=== PATIENT | female | born 1995 | race Caucasian/White ===

== ENCOUNTER 2016-10-04 06:20 | Observation (INO) | payer OTHER ==
[~2016-10-04] VITALS: Ht 152.4 cm; Wt 68.9 kg
[2016-10-04 06:30] VITALS: BP 107/57
[2016-10-04] MEDS ORDERED: PREN1TAB80 PO (06:37)
== END 2016-10-04 08:40 | disposition home or self-care (01) ==
LOC: 4S 06:20
PROVIDERS: ADMIT Obstetrics & Gynecology; ATTEND Obstetrics & Gynecology
DX: O46.93 Antepartum hemorrhage, unspecified, third trimester (principal); O26.893 Other specified pregnancy related conditions, third trimester; R10.9 Unspecified abdominal pain; O48.0 Post-term pregnancy; Z3A.40 40 weeks gestation of pregnancy
CPT/HCPCS: 36415; 59025; 89060; G0378

== ENCOUNTER 2016-10-04 15:55 | Inpatient (IN) | payer OTHER ==
[~2016-10-04] VITALS: Ht 154 cm; Wt 68.9 kg
[~2016-10-04 15:55] MED LIST: PREN1TAB80 PO
[2016-10-04] MEDS ORDERED: RINGERS SOLUTION,LACTATED 1,000 ML IV PRN (16:38)
[2016-10-04] MEDS ORDERED: METOCLOPRAMIDE HCL 5 MG/ML 2 ML VIAL IVP PRN (16:45)
[2016-10-04] MEDS ORDERED: METHYLERGONOVINE MALEATE 0.2 MG/ML VIAL IM PRN (16:45)
[2016-10-04] MEDS ORDERED: LIDOCAINE HCL/PF 1% 30 ML VIAL INJ PRN (16:45)
[2016-10-04] MEDS ORDERED: CITRIC ACID/SODIUM CITRATE 30 ML SOLUTION UDCUP PO PRN (16:45)
[2016-10-04 17:18] LABS: EOSINOPHILS % (AUTO) 0.3 % (1.0-6.0); HEMATOCRIT 35.3 % (36-46); HEMOGLOBIN 12.4 g/dL (12.0-16.0); LYMPHOCYTES # (AUTO) 1.4 K/uL (1.0-4.8); LYMPHOCYTES % (AUTO) 10.6 % (22.0-44.0); MEAN CORPUSCULAR HEMOGLOBIN 34.3 pg (26.0-34.0); MEAN CORPUSCULAR HGB CONC 35.2 G/dL (31.0-37.0); MEAN CORPUSCULAR VOLUME 97 fL (80-100); MONOCYTES # (AUTO) 0.6 K/uL (0.1-1.0); MONOCYTES % (AUTO) 4.3 % (2.0-9.0); NEUTROPHILS # (AUTO) 11.4 K/uL (1.8-7.7); NEUTROPHILS % (AUTO) 84.8 % (40.0-70.0); RED BLOOD CELL COUNT(AUTO) 3.63 MIL/uL (4.00-5.20); RED CELL DISTRIBUTION WIDTH 13.2 % (11.5-14.5); WHITE BLOOD COUNT (AUTO) 13.4 K/uL (4.5-11.0)
[2016-10-04] MEDS: RINGERS SOLUTION,LACTATED 1,000 ML IV SCH ×2 (17:53→19:58)
[2016-10-04] MEDS ORDERED: OXYTOCIN 30 UNITS/LACT RINGERS 500 ML IV PRN (18:57)
[2016-10-04 19:24] VITALS: BP 113/65
[2016-10-04] MEDS ORDERED: OXYGEN THERAPY IH SCH (20:00)
[2016-10-04] MEDS ORDERED: OXYTOCIN 30 UNITS/LACT RINGERS 500 ML IV ONE (20:15)
[2016-10-04] MEDS: FentaNYL CITRATE-PF 100 MCG/2 ML VIAL IVP PRN ×2 (20:24→20:25)
[2016-10-04] MEDS ORDERED: FentaNYL/BUPIV 0.125%/NS/PF 200 ML ED ONE (20:56)
[2016-10-05] MEDS ORDERED: RINGERS SOLUTION,LACTATED 1,000 ML IV ONE (01:00)
[2016-10-05] MEDS: RINGERS SOLUTION,LACTATED 1,000 ML IV SCH ×3 (03:05→23:50)
[2016-10-05] MEDS ORDERED: ACETAMINOPHEN 1000 MG/ISO-OSM 100 ML IV ONE ×2 (08:45→08:50)
[2016-10-05] MEDS ORDERED: AMPICILLIN SODIUM 2 GM/NS 100 ML IV ONE (08:45)
[2016-10-05] MEDS ORDERED: EPHEDrine SULFATE 50 MG/ML VIAL IM ONE (12:00)
[2016-10-05] MEDS ORDERED: OXYTOCIN 10 UNITS/ML VIAL IM ONE (12:00)
[2016-10-05] MEDS ORDERED: ONDANSETRON HCL 4 MG/2 ML VIAL IVP ONE (12:00)
[2016-10-05] MEDS ORDERED: GLYCOPYRROLATE 0.2 MG/ML VIAL IM ONE (12:00)
[2016-10-05] MEDS ORDERED: GENTAMICIN 100 MG/NACL ISO-OSM 50 ML IV ONE (13:30)
[2016-10-05] MEDS ORDERED: LIDOCAINE HCL 2%/EPI 1:200,000/PF 10 ML VIAL ONE (15:04)
[2016-10-05] MEDS ORDERED: METHYLERGONOVINE MALEATE 0.2 MG/ML VIAL ONE (16:14)
[2016-10-05] MEDS ORDERED: NALBUPHINE HCL 10 MG/ML VIAL IVP PRN ×2 (16:30)
[2016-10-05] MEDS ORDERED: DiphenhydrAMINE HCL 50 MG/ML VIAL IVP PRN (16:30)
[2016-10-05] MEDS ORDERED: ONDANSETRON HCL 4 MG/2 ML VIAL IVP PRN (16:30)
[2016-10-05] MEDS ORDERED: NALOXONE HCL 0.4 MG/ML VIAL IVP PRN (16:30)
[2016-10-05] MEDS ORDERED: MEPERIDINE-PF 25 MG/ML SYRINGE IVP PRN (17:15)
[2016-10-05] MEDS ORDERED: OxyCODONE HCL/ACETAMINOPHEN 5-325 MG TABLET PO PRN ×2 (17:30)
[2016-10-05] MEDS ORDERED: LANOLIN 7 GM OINTMENT TP PRN (17:30)
[2016-10-05] MEDS ORDERED: GLYCERIN/WITCH HAZEL LEAF 40 PADS JAR TP PRN (17:30)
[2016-10-05] MEDS ORDERED: NALBUPHINE HCL 10 MG/ML VIAL ONE (17:56)
[2016-10-05] MEDS: NALBUPHINE HCL 10 MG/ML VIAL IVP SCH (18:39)
[2016-10-05] MEDS ORDERED: OXYGEN THERAPY IH SCH ×3 (20:00)
[2016-10-05] MEDS: MAGNESIUM HYDROXIDE SUSPENSION 30 ML UDCUP PO SCH (21:18)
[2016-10-06] MEDS: NALBUPHINE HCL 10 MG/ML VIAL IVP SCH ×3 (00:23→12:45)
[2016-10-06 06:57] LABS: BASOPHILS % (AUTO) 0.4 % (0.0-2.0); EOSINOPHILS % (AUTO) 0 % (1.0-6.0); HEMATOCRIT 28.9 % (36-46); HEMOGLOBIN 10.2 g/dL (12.0-16.0); LYMPHOCYTES # (AUTO) 1.4 K/uL (1.0-4.8); LYMPHOCYTES % (AUTO) 8.2 % (22.0-44.0); MEAN CORPUSCULAR HEMOGLOBIN 34.5 pg (26.0-34.0); MEAN CORPUSCULAR HGB CONC 35.3 G/dL (31.0-37.0); MEAN CORPUSCULAR VOLUME 98 fL (80-100); MONOCYTES # (AUTO) 0.9 K/uL (0.1-1.0); MONOCYTES % (AUTO) 5.6 % (2.0-9.0); NEUTROPHILS # (AUTO) 14.4 K/uL (1.8-7.7); RED BLOOD CELL COUNT(AUTO) 2.96 MIL/uL (4.00-5.20); RED CELL DISTRIBUTION WIDTH 13.2 % (11.5-14.5); WHITE BLOOD COUNT (AUTO) 16.8 K/uL (4.5-11.0)
[2016-10-06] MEDS: RINGERS SOLUTION,LACTATED 1,000 ML IV SCH ×2 (06:58→14:54)
[2016-10-06 07:42] LABS: NEUTROPHILS % (AUTO) 85.8 % (40.0-70.0)
[2016-10-06] MEDS: FentaNYL CITRATE-PF 100 MCG/2 ML VIAL IVP PRN ×2 (08:26→15:40)
[2016-10-06] MEDS ORDERED: FentaNYL CITRATE-PF 100 MCG/2 ML VIAL IVP ONE (12:00)
[2016-10-06] MEDS ORDERED: MORPHINE SULFATE/PF 0.5 MG/ML 10 ML AMP IVP ONE (12:00)
[2016-10-06] MEDS: IBUPROFEN 600 MG TABLET PO PRN (18:31)
[2016-10-06] MEDS: MAGNESIUM HYDROXIDE SUSPENSION 30 ML UDCUP PO SCH (20:45)
[2016-10-06] MEDS: SENNA/DOCUSATE SODIUM 187-50 MG TABLET PO SCH (20:46)
[2016-10-07] MEDS: IBUPROFEN 600 MG TABLET PO PRN (00:13)
[2016-10-07] MEDS: SENNA/DOCUSATE SODIUM 187-50 MG TABLET PO SCH (09:02)
[2016-10-07] MEDS: MAGNESIUM HYDROXIDE SUSPENSION 30 ML UDCUP PO SCH (09:02)
[2016-10-07] MEDS ORDERED: PERCT PO (10:59)
[2016-10-07] MEDS ORDERED: DSS100 PO (11:03)
[2016-10-07] MEDS ORDERED: FERR-89 PO (11:03)
[2016-10-07] MEDS ORDERED: IBUP-2070 PO (11:03)
== END 2016-10-07 15:05 | disposition home or self-care (01) | DRG 766 ==
LOC: OBSVTOIN 15:55 → 4S 15:55
PROVIDERS: ADMIT Obstetrics & Gynecology; ATTEND Obstetrics & Gynecology
PROC: 10D00Z1 Extraction of Products of Conception, Low, Open Approach (ICD-10-PCS; principal; 2016-10-05)
DX: O62.2 Other uterine inertia (principal); O77.0 Labor and delivery complicated by meconium in amniotic fluid; O33.9 Maternal care for disproportion, unspecified; Z3A.40 40 weeks gestation of pregnancy; Z37.0 Single live birth
CPT/HCPCS: 86850; 86900; 86901; J0131; J0290; J0690; J1580; J2210; J2274; J2300; J2405; J2590; J2765; J3010; J3490; J7120

== ENCOUNTER 2020-06-14 14:53 | Observation (INO) | payer OTHER ==
[~2020-06-14] VITALS: Ht 154 cm; Wt 74.4 kg
[~2020-06-14 14:53] MED LIST changes: +DSS100 PO; +FERR-89 PO; +IBUP-2070 PO; +PERCT PO
[2020-06-14] MEDS ORDERED: PREN1TAB80 PO (15:18)
[2020-06-14 15:19] VITALS: BP 106/56
== END 2020-06-14 16:55 | disposition home or self-care (01) ==
LOC: 4S 14:53
PROVIDERS: ADMIT Obstetrics & Gynecology Obstetrics; ATTEND Obstetrics & Gynecology Obstetrics
DX: O46.93 Antepartum hemorrhage, unspecified, third trimester (principal); Z3A.35 35 weeks gestation of pregnancy
CPT/HCPCS: 59025; 76805; 99219

== ENCOUNTER 2020-07-02 14:55 | Observation (INO) | payer OTHER ==
[~2020-07-02] VITALS: Ht 154.9 cm; Wt 75.3 kg
[~2020-07-02 14:55] MED LIST changes: -DSS100 PO; -FERR-89 PO; -IBUP-2070 PO; -PERCT PO
[2020-07-02 17:32] LABS: COVID AG,FIA SOURCE NASOPHARYNGEAL
== END 2020-07-02 15:10 | disposition home or self-care (01) ==
LOC: 4S 14:55
PROVIDERS: ADMIT Obstetrics & Gynecology Obstetrics; ATTEND Obstetrics & Gynecology Obstetrics
DX: Z34.93 Encounter for supervision of normal pregnancy, unspecified, third trimester (principal); Z20.822 Contact with and (suspected) exposure to COVID-19; Z3A.38 38 weeks gestation of pregnancy
CPT/HCPCS: 87426; 99219

== ENCOUNTER 2020-07-03 05:05 | Inpatient (IN) | payer OTHER ==
[~2020-07-03] VITALS: Ht 154.9 cm; Wt 75.3 kg
[2020-07-03 05:13] VITALS: BP 108/57
[2020-07-03] MEDS ORDERED: CITRIC ACID/SODIUM CITRATE 30 ML SOLUTION UDCUP PO ONE (05:45)
[2020-07-03] MEDS ORDERED: RINGERS SOLUTION,LACTATED 1,000 ML IV ONE ×2 (05:45→10:29)
[2020-07-03] MEDS ORDERED: METOCLOPRAMIDE HCL 5 MG/ML 2 ML VIAL IVP ONE (05:45)
[2020-07-03 06:09] LABS: BASOPHILS % (AUTO) 0.5 % (0.0-2.0); EOSINOPHILS % (AUTO) 1.7 % (1.0-6.0); HEMATOCRIT 36.4 % (36-46); HEMOGLOBIN 12.4 g/dL (12.0-16.0); LYMPHOCYTES % (AUTO) 22.8 % (22.0-44.0); MEAN CORPUSCULAR HEMOGLOBIN 33.4 pg (26.0-34.0); MEAN CORPUSCULAR HGB CONC 34.2 G/dL (31.0-37.0); MEAN CORPUSCULAR VOLUME 97 fL (80-100); MONOCYTES # (AUTO) 0.5 K/uL (0.1-1.0); MONOCYTES % (AUTO) 5.6 % (2.0-9.0); NEUTROPHILS # (AUTO) 6.2 K/uL (1.8-7.7); NEUTROPHILS % (AUTO) 69.4 % (40.0-70.0); PLATELET COUNT (AUTO) 125 K/uL (150-450); RED BLOOD CELL COUNT(AUTO) 3.73 MIL/uL (4.00-5.20); RED CELL DISTRIBUTION WIDTH 13.5 % (11.5-14.5)
[2020-07-03] MEDS ORDERED: GUM MASTIC/STORAX/MSAL/ALCOHOL LIQUID 0.67 ML VIAL TP ONE (08:22)
[2020-07-03] MEDS ORDERED: MORPHINE SULFATE 10 MG/ML SYRINGE IVP PRN (08:30)
[2020-07-03] MEDS ORDERED: NALOXONE HCL 0.4 MG/ML VIAL IVP PRN (08:30)
[2020-07-03] MEDS ORDERED: ONDANSETRON HCL 4 MG/2 ML VIAL IVP PRN ×2 (08:30)
[2020-07-03] MEDS ORDERED: MEPERIDINE-PF 25 MG/ML VIAL IVP PRN (08:30)
[2020-07-03] MEDS ORDERED: FentaNYL CITRATE PF 100 MCG/2 ML VIAL IVP PRN ×4 (08:30)
[2020-07-03] MEDS ORDERED: DiphenhydrAMINE HCL 50 MG/ML VIAL IVP PRN (08:30)
[2020-07-03] MEDS ORDERED: NALBUPHINE HCL 10 MG/ML VIAL IVP PRN ×3 (08:30)
[2020-07-03] MEDS ORDERED: DiphenhydrAMINE HCL 50 MG/ML VIAL IM PRN (08:30)
[2020-07-03] MEDS ORDERED: OxyCODONE HCL/ACETAMINOPHEN 5-325 MG TABLET PO PRN ×2 (08:45)
[2020-07-03] MEDS ORDERED: OXYTOCIN 30 UNITS/LACT RINGERS 500 ML IV ONE (08:45)
[2020-07-03] MEDS ORDERED: LANOLIN 7 GM OINTMENT TP PRN (08:45)
[2020-07-03] MEDS: RINGERS SOLUTION,LACTATED 1,000 ML IV SCH ×2 (10:32→18:29)
[2020-07-03] MEDS ORDERED: EPHEDrine SULFATE 50 MG/ML VIAL IM ONE (12:20)
[2020-07-03] MEDS ORDERED: PHENYLEPHRINE HCL 10 MG/ML VIAL IVP ONE (12:20)
[2020-07-03] MEDS ORDERED: KETOROLAC TROMETHAMINE 60 MG/2 ML VIAL IM ONE (12:20)
[2020-07-03] MEDS ORDERED: DEXAMETHASONE SOD PHOS 4 MG/ML VIAL IVP ONE (12:20)
[2020-07-03] MEDS ORDERED: ONDANSETRON HCL 4 MG/2 ML VIAL IVP ONE (12:20)
[2020-07-03] MEDS ORDERED: OXYTOCIN 10 UNITS/ML VIAL IM ONE (12:20)
[2020-07-03] MEDS ORDERED: 0.9% SODIUM CHLORIDE 10 ML VIAL IVP ONE (12:20)
[2020-07-03] MEDS: KETOROLAC TROMETHAMINE 30 MG/ML VIAL IVP SCH ×2 (14:12→21:32)
[2020-07-03] MEDS: ACETAMINOPHEN 1000 MG/ISO-OSM 100 ML IV SCH (16:18)
[2020-07-03] MEDS ORDERED: OXYGEN THERAPY IH SCH ×2 (20:00)
[2020-07-03] MEDS: MAGNESIUM HYDROXIDE SUSPENSION 30 ML UDCUP PO SCH (21:32)
[2020-07-04] MEDS: ACETAMINOPHEN 1000 MG/ISO-OSM 100 ML IV SCH (00:08)
[2020-07-04 05:24] LABS: BASOPHILS % (AUTO) 0.3 % (0.0-2.0); EOSINOPHILS % (AUTO) 0.2 % (1.0-6.0); HEMATOCRIT 29.7 % (36-46); HEMOGLOBIN 10.2 g/dL (12.0-16.0); LYMPHOCYTES # (AUTO) 2.6 K/uL (1.0-4.8); LYMPHOCYTES % (AUTO) 21.5 % (22.0-44.0); MEAN CORPUSCULAR HEMOGLOBIN 33.7 pg (26.0-34.0); MEAN CORPUSCULAR HGB CONC 34.4 G/dL (31.0-37.0); MEAN CORPUSCULAR VOLUME 98 fL (80-100); MONOCYTES # (AUTO) 0.8 K/uL (0.1-1.0); MONOCYTES % (AUTO) 6.3 % (2.0-9.0); NEUTROPHILS # (AUTO) 8.7 K/uL (1.8-7.7); NEUTROPHILS % (AUTO) 71.7 % (40.0-70.0); PLATELET COUNT (AUTO)-OB 136 K/uL (150-450); RED BLOOD CELL COUNT(AUTO) 3.04 MIL/uL (4.00-5.20); RED CELL DISTRIBUTION WIDTH 13.4 % (11.5-14.5)
[2020-07-04] MEDS: MAGNESIUM HYDROXIDE SUSPENSION 30 ML UDCUP PO SCH ×2 (08:33→21:02)
[2020-07-04] MEDS: IBUPROFEN 800 MG TABLET PO PRN (14:46)
[2020-07-05] MEDS: IBUPROFEN 800 MG TABLET PO PRN ×2 (00:41→08:36)
[2020-07-05] MEDS ORDERED: IBUP-2071 PO (08:51)
[2020-07-05] MEDS ORDERED: DOCU-275 PO (08:52)
[2020-07-05] MEDS ORDERED: FERR-89 PO (08:52)
[2020-07-05] MEDS ORDERED: PERCT PO (08:53)
== END 2020-07-05 11:40 | disposition home or self-care (01) | DRG 788 ==
LOC: UNDOADMIN 05:05 → NSY 05:05 → 4S 05:05 → PREOBSVTOIN 07-10 05:19 → EDSTATUS 07-10 05:20
PROVIDERS: ADMIT Obstetrics & Gynecology Obstetrics; ATTEND Obstetrics & Gynecology Obstetrics
PROC: 10D00Z1 Extraction of Products of Conception, Low, Open Approach (ICD-10-PCS; principal; 2020-07-03)
DX: O34.211 Maternal care for low transverse scar from previous cesarean delivery (principal); O69.81X0 Labor and delivery complicated by cord around neck, without compression, not applicable or unspecified; Z3A.39 39 weeks gestation of pregnancy; Z37.0 Single live birth
CPT/HCPCS: 86850; 86900; 86901; 87081; J0131; J1100; J1885; J2370; J2405; J2590; J2765; J3490; J7120